=== PATIENT | male | born 1990 | race Caucasian/White ===

== ENCOUNTER 2020-05-03 23:36 | Emergency (ER) | payer OTHER | END 2020-05-04 07:08 | disposition home or self-care (01) | LOC: ED 23:36 | DX: T42.6X1A Poisoning by other antiepileptic and sedative-hypnotic drugs, accidental (unintentional), initial encounter (principal); Z87.891 Personal history of nicotine dependence ==

== ENCOUNTER 2020-06-16 13:07 | Observation (INO) | payer OTHER ==
[~2020-06-16] VITALS: Ht 182.9 cm; Wt 90.0 kg
[2020-06-16] MEDS ORDERED: NORVASC10 MG PO (13:34)
[2020-06-16] MEDS ORDERED: LISINOPRIL10 MG PO (13:34)
[2020-06-16] MEDS ORDERED: MELOXICAM15 MG PO (13:35)
--- NOTE | 2020-06-16 20:00 | NUR ---
PT TRANSPORTED FROM ED TO CCU ON TELEMETRY WITH THIS RN AND TWO [facility] KAREN. PT ALERT AND ORIENTED ON TRANSPORT. ABLE TO MOVE FROM STRETCHER TO BED WITH ONE PERSON ASSIST.
--- NOTE | 2020-06-16 20:15 | NUR ---
INIITIAL ASSESSMENT COMPLETED. PT ALERT AND ORIENTED. ANSWERS ALL QUESTIONS APPROPRIATELY. DENIES PAIN. STILL STATES HE HAS SOME LEFT SIDE WEAKNESS IN HIS ARM AND LEG. DIFFICULT TO ASSESS MOBILITY DUE TO SHACKLES. SENSATION INTAKE. PUPILS WNL. DISCUSSED PLAN OF CARE, ALL QUESTIONS ANSWERED. DENIES FURTHER NEEDS AT THIS TIME.
--- NOTE | 2020-06-16 20:53 | NUR ---
IV KEPPRA INFUSING AT THIS TIME. PT DENIES FURTHER NEEDS AT THIS TIME.
--- NOTE | 2020-06-16 22:30 | NUR ---
PT LYING IN PRONE POSITION, RESTING WITH EYES CLOSED, RESP EVEN AND UNLABORED SPO2 95%.
--- NOTE | 2020-06-16 22:45 | NUR ---
PT STOOD AT BEDSIDE TO VOID. HEART RATE INTO THE 140S. PT REPORTED FEELING DIZZY AND "JUST NOT GOOD". ASSISTED PT WITH LAYING BACK IN BED. INTRUCTED PT TO BEAR DOWN. HEART RATE RETURNED BACK UNDER 90 BPM. BLOOD PRESSURE WNL. NO INCREASED WEAKNESS ON LEFT SIDE. SAURATIONS REMAIN IN THE MID TO HIGH 90S ON ROOM AIR.
--- NOTE | 2020-06-16 23:07 | NUR ---
DR REICH CALLED AN UPDATED ON CHANGE IN PATIENTS CONDITION. ORDERS RECIEVED AT THIS TIME (SEE EMAR).
--- NOTE | 2020-06-17 00:49 | NUR ---
IN ROOM FOR ASSESSMENT. PT STOOD TO VOID. HEART RATE INCREASED TO 120-130. HAD PATIENT LAY BACK DOWN. HEART RATE BACK DOWN UNDER 100 BPM WITH REST. PT LESS SYMPTOMATIC THIS TIME THAN DURING THE PREVIOUS EVENT. BLOOD PRESSURE WITHIN NORMAL LIMITS. LUNGS SOUND CLEAR THROUGHOUT. PUPIL EQUAL AND REACTIVE TO LIGHT. SPO2 99 PERCENT ON ROOM AIR. RADIAL AND PEDAL PULSES EQUAL AND STRONG. DENIES DIZZINESS AT THIS TIME. CALL LIGHT WITHIN REACH. GAURDS REMAIN OUTSIDE OF DOOR. WILL CONTINUE TO CLOSELY MONITOR.
--- NOTE | 2020-06-17 02:12 | NUR ---
pt asleep. breathing even and unlabored RR=13. HR = 67 bpm. gaurds remain outside of room. no needs at this time
--- NOTE | 2020-06-17 05:17 | NUR ---
IN ROOM FOR ASSESSMENT. PT STATES LEFT SIDED WEAKNESS SEEMS TO HAVE RESOLVED. PT SAT AT BEDSIDE TO VOID. HEART RATE REMAINS WNL. PT UNABLE TO VOID. BACK IN BED. CALL LIGHT WITHIN REACH. DENIES FURTHER NEEDS AT THIS TIME.
--- NOTE | 2020-06-17 06:51 | NUR ---
patient stood at bedside to void. heart rate back up into the 140s with movement. denies dizziness. back in bed. heart rate back into the 60s after pt is back in bed. denies further needs at this time.
--- NOTE | 2020-06-17 07:40 | NUR ---
REPORT RECEIVED FROM NIGHTSHIFT RN, WILL CONTINUE PLAN OF CARE.
--- NOTE | 2020-06-17 08:24 | NUR ---
Update from Rn. Pt has history of seizures and could not bear weight on R side yesterday. He is also having activity on telemetry. Correctional officers are at his door. We follow up with Dr. Carlos for dc plan.
--- NOTE | 2020-06-17 08:39 | NUR ---
PT. LAYING IN BED WATCHING TV. PT REPORTS A SLIGHT BACK ACHE. PRN PAIN MEDICATION GIVEN FOR PAIN (SEE MAR). ASSESSMENT COMPLETE, PT STILL HAS L SIDED WEAKNESS WHEN COMPARED TO R SIDE. ORDERED MEDICATIONS ADMINISTERED, PT NOW LAYING IN BED WATCHING TV. CALL LIGHT WITHIN REACH, BED IN LOWEST POSITION. PT REPORTS NO FURTHER NEEDS AT THIS TIME. WILL CONTINUE PLAN OF CARE.
--- NOTE | 2020-06-17 10:30 | NUR ---
OT IN TO ASSESS PT. DR REICH ALSO IN TO ASSESS PT AND UPDATE ON PLAN OF CARE. DR. REICH STATES HE WILL ORDER AN MRI AND ECHO FOR THE PT. MRI TO HAPPEN TODAY AT 1PM. WHILE BEING ASSESSED BY OT PT STOOD UP TO URINATE. HR INCREASED TO THE 140'S PT STATED HE WAS DIZZY AND LIGHTHEADED AT THAT TIME. HR DECREASED ONCE PT WAS SITTING BACK DOWN AND SYMPTOMS SUBSIDED. PT STATES HE STILL FEELS WEAKER ON THE LEFT SIDE. PT REPORTS NO NEEDS AT THIS TIME, WILL CONTINUE PLAN OF CARE.
--- NOTE | 2020-06-17 11:45 | NUR ---
PT LAYING IN BED AWAKE AND ALERT. PT REPORTS THAT BACK PAIN IS NOW TOLERABLE AFTER RECEIVING PRN TYLENOL. IV FLUIDS INFUSING ORDERED NOW. MRI CHECKLIST COMPLETE. PT STATES HE FEELS STRONGER ON HIS LEFT SIDE THAN YESTERDAY, WHEN ASSESSED PT STILL PRESENTS WITH L SIDED WEAKNESS. PT REPORTS NO FURTHER NEEDS AT THIS TIME. CALL LIGHT IN REACH, BED IN LOWEST POSITION, WILL CONTINUE PLAN OF CARE.
--- NOTE | 2020-06-17 12:35 | NUR ---
RT IN TO DO EKG ON PT. PT IV FLUIDS COMPLETE, PT SALINE LOCKED. PT NOW EATING LUNCH IN BED. PT REPORTS NO FURTHER NEEDS AT THIS TIME AND DENIES ANY PAIN. CALL LIGHT IN REACH, BED IN LOWEST POSITION, WILL CONTINUE PLAN OF CARE.
--- NOTE | 2020-06-17 12:53 | NUR ---
PT UP TO USE URINAL. WHILE USING URINAL PT HR INCREASED TO 120'S, SPO2 STAYED AT 100% ON ROOM AIR. PT STATED HE WAS FEELING DIZZY/LIGHTHEADED AND VERY WARM TOWARDS THE END. PT'S SYMPTOMS SUBSIDED ONCE HE SAT DOWN ON BED. PT NOW LAYING BACK IN BED WATCHING TV. PT REPORTS NO FURTHER NEEDS AT THIS TIME, CALL LIGHT IN REACH, BED IN LOWEST POSITION. WILL CONTINUE PLAN OF CARE.
--- NOTE | 2020-06-17 13:11 | EKG ---
[facility] [address] [place] [address] Signed Sinus tachycardia Otherwise normal ECG When compared with ECG of 03-MAY-2020 23:50, Vent. rate has increased BY 44 BPM Nonspecific T wave abnormality no longer evident in Anterior leads Confirmed by LIZ REICH DO ([id number]) on 06/17/2020 1:11:35 PM Electronically Signed By: LIZ REICH DO 06/17/20 1311 PATIENT NAME: LORRI PEET VIDA Electrocardiogram DATE OF : 89 PHYSICIAN: LIZ REICH DO REPORT #: [id number] REPORT IS CONFIDENTIAL AND NOT TO BE RELEASED WITHOUT AUTHORIZATION
--- NOTE | 2020-06-17 13:41 | NUR ---
UNABLE TO VISIT IN PERSON WITH PT DUE TO PRECAUTIONS. WILL FOLLOW NEEDED OR ABLE
--- NOTE | 2020-06-17 14:06 | NUR ---
Call from Linda at [facility] and update given. Today's progress note faxed as requested. Informed I spoke with Dr. Carlos and possible dc tomorrow.
--- NOTE | 2020-06-17 14:34 | NUR ---
PT. RETURNED FROM IMAGING VIA WHEELCHAIR. MONITORS REATTACHED. ORDERED MEDICATION GIVEN AND ORTHOSTATIC BP TAKEN. PT STATED HE FELT LIGHTHEADED WHILE STANDING FOR THE ORTHOSTATIC BP'S BUT WAS ABLE TO STAY UP THE WHOLE TIME. HR WENT UP TO THE 120'S BUT SETTLED IN THE HIGH 90'S LOW 100'S AFTER THE 3 MIN. PT NOW BACK IN BED WATCHING TV AFTER VOIDING INTO URINAL. PT REPORTS NO FURTHER NEEDS AT THIS TIME. WILL CONTINUE PLAN OF CARE. CALL LIGHT IN REACH, BED IN LOWEST POSITION.
--- NOTE | 2020-06-17 15:09 | NUR ---
assisted pt. with bed bath, gown change bed linens. no other needs at this time.
--- NOTE | 2020-06-17 15:41 | NUR ---
PT SITTING IN BED EATING A SNACK. PT REPORTS NO LOWER BACK PAIN AT THIS TIME. PT REPORTS NO FEELINGS OF LIGHTHEADEDNESS OR DIZZYNESS AT THIS TIME. PT STILL EATING AND WATCHING TV AND REPORTS NO FURTHER NEEDS WHEN ASKED. CALL LIGHT WITHIN REACH, BED IN LOWEST POSTION, WILL CONTINUE PLAN OF CARE.
--- NOTE | 2020-06-17 17:54 | NUR ---
PATIENT WORKS WITH PHYS THERAPY AND THEN AMBULATES INTO BATHROOM TO HAVE A BM AND VOID. PT STATES TO GUARDS THAT HE FELT VERY DIZZY AND NAUESOUS AFTER THIS ACTIVITY, BUT NOW RESTING IN BED HIS SYMPTOMS HAVE IMPROVED. DISCUSSED WITH PATIENT PLAN TO SEE PHYSICAN TOMORROW AND PLANS MOVING FORWARD. PT'S HR UP TO 110s WITH ACTIVITY THAT TIME, OPPOSED TO UP 140s IT DID EARLIER. WILL CONTINUE TO MONITOR. PT GOING TO EAT HIS DINNER.
--- NOTE | 2020-06-17 19:30 | NUR ---
REPORT RECIEVED FROM CCU RN. CARE OF PATIENT ASSUMED AT THIS TIME. PT ASLEEP IN ROOM. KAREN AT BEDSIDE.
--- NOTE | 2020-06-17 20:43 | NUR ---
IN ROOM FOR MEDICATION ADMINISTRATION AND TO COMPLETE ASSESSMENT. PT HEART RATE IN THE 70-80S AT REST. ALERT AND ORIENTED X4, DENIES PAIN OR DISCOMFORT. PLAN OF CARE ESTABLISHED FOR EVENING. PT DENIES ANY NEEDS AT THIS TIME. CALL LIGHT WITHIN REACH. GAURDS REMAIN OUTSIDE OF ROOM.
--- NOTE | 2020-06-17 20:58 | NUR ---
PT AMBUALTED TO BATHROOM TO VOID. HEART RATE AT 100 BPM WITH AMBULATION. BACK DOWN INTO THE 70S WITH REST. DENIES FEELING NAUSEATED OR DIZZY WITH AMBULATION. LEFT SIDED LIMP STILL NOTICABLE WITH AMBULATION. PT BACK IN BED. NO FURTHER NEEDS.
--- NOTE | 2020-06-17 22:09 | EKG ---
[facility] [address] [place] [address] Signed Normal sinus rhythm Normal ECG When compared with ECG of 16-JUN-2020 13:13, (Unconfirmed) Vent. rate has decreased BY 41 BPM Confirmed by FRANKLIN TRAVIS MD ([id number]) on 06/17/2020 10:09:46 PM Electronically Signed By: FRANKLIN TRAVIS MD 06/17/20 2209 PATIENT NAME: LORRI PETE VIDA Electrocardiogram DATE OF : 89 PHYSICIAN: FRANKLIN TRAVIS MD REPORT #: [id number] REPORT IS CONFIDENTIAL AND NOT TO BE RELEASED WITHOUT AUTHORIZATION
--- NOTE | 2020-06-18 01:00 | NUR ---
PT IS SLEEPING SOUNDLY. HEART RATE DIPS INTO THE 40S OCCASIONALLY. CONSISTENTLY 50-60 AT REST. RR EVEN AND UNLABORED. SPO2 97 PERCENT ON ROOM AIR. GAURDS REMAIN OUTSIDE OF ROOM. NO ASSESSED NEEDS AT THIS TIME
--- NOTE | 2020-06-18 01:57 | NUR ---
2 AM DOSE OF CARDIZEM HELD DUE TO PATIENT'S BRADYCARDIA. WILL CONTINUE TO MONITOR.
--- NOTE | 2020-06-18 02:00 | NUR ---
pt resting soundly. breathing even and unlabored. heart rate in the 50s while resting. call light within reach. gaurds outside of door. no further needs at this time.
--- NOTE | 2020-06-18 03:00 | NUR ---
PT ASLEEP. REMAINS ON TELEMETRY. HEART RATE IN THE 50-60 WITH REST. NO ASSESSED NEEDS AT THIS TIME.
--- NOTE | 2020-06-18 05:15 | NUR ---
IN ROOM TO ASSESS PATIENT AND LAB DRAW. PT STATES HE IS FEELING WELL. AMBULATED TO THE BATHROOM. MINIMAL LIMPING NOTED. PT ABLE TO AMBULATE INDEPENDENTLY. PT HEART RATE IN THE 60-70S DURING AMBULATION. BACK IN BED. DENIES ANY NEEDS AT THSI TIME. CALL LIGHT WITHIN REACH. GUARDS REMAIN OUTSIDE OF ROOM.
--- NOTE | 2020-06-18 07:30 | NUR ---
REPORT RECIEVED. AMBULATED TO BR W/O ASSIST. BACK TO BED W/O INCIDENT.
--- NOTE | 2020-06-18 08:30 | NUR ---
Per [address] Naran[address]. Pt may dc today. Will call Linda at [facility] and update.
--- NOTE | 2020-06-18 08:30 | NUR ---
ASSESSMENT DONE, REMAINS WEAK ON LEFT SIDE. DENEIS PAIN. ROUTINE MEDICATIONS AND BREAKFAST GIVEN.
[2020-06-18] MEDS ORDERED: HYDROXYZINE HCL50 MG PO (11:42)
--- NOTE | 2020-06-18 11:43 | NUR ---
MED REC COMPLETE
--- NOTE | 2020-06-18 12:00 | NUR ---
Notified by Dr. Naranjo, pt will dc today. [facility] notified.
--- NOTE | 2020-06-18 12:35 | NUR ---
DR. TRAVIS HERE TO SEE PATIENT. WILL BE DISCHARGED THIS AFTERNOON.
[2020-06-18] MEDS ORDERED: DILTIAZEM 24HR120 MG PO (13:20)
[2020-06-18] MEDS ORDERED: KEPPRA500 MG PO (13:21)
--- NOTE | 2020-06-18 13:30 | NUR ---
Notified by CCU rn, packet from [facility] is not in the chart. Called and spoke with Phyllis Hanna NP at [facility]. They will fax new sheet and request dc summary. Dc summary faxed, she asks for report, informed I will have RN call as she has been working with José Miguel. Notified by RN packet was found, special weapons and tactics officer had. Called Dr. Naranjo to complete and she request I add a verbal order for staff to see dc summary and new prescriptions. Completed and placed in [place]illa envelope for [facility].
--- NOTE | 2020-06-18 13:45 | NUR ---
DISCHARGE INSTRUSTIONS GIVEN WITH PATIENT UNDERSTANDING. TELEMETRY AND IV SITE DC'D.
--- NOTE | 2020-06-18 14:20 | NUR ---
DISCHARGED VIA W/C ACCOMP BY OFFICERS AND NURSING STAFF.
--- NOTE | 2020-06-18 14:22 | NUR ---
UNABLE TO VISIT WITH PT DUE TO PRECAUTIONS. 2 [facility] GUARDS POSTED IN HALLWAY. WILL FOLLOW NEEDED
--- NOTE | 2020-06-18 14:34 | NUR ---
REPORT CALLED TO [facility] RN AT THIS TIME. ALL QUESTIONS ANSWERED BEST POSSIBLE AND INSTRUCTIONS TO CALL BACK IF ANY FURTHER QUESTIONS ARISE.
== END 2020-06-18 14:51 | disposition home or self-care (01) ==
LOC: ED 13:07 → CCU 13:08
PROVIDERS: ADMIT Student in an Organized Health Care Education/Training Program; ATTEND Student in an Organized Health Care Education/Training Program
DX: G83.84 Todd's paralysis (postepileptic) (principal); G40.909 Epilepsy, unspecified, not intractable, without status epilepticus; R29.898 Other symptoms and signs involving the musculoskeletal system; U07.1 COVID-19; R00.0 Tachycardia, unspecified; D68.59 Other primary thrombophilia; I10 Essential (primary) hypertension; Z88.8 Allergy status to other drugs, medicaments and biological substances; Z79.1 Long term (current) use of non-steroidal anti-inflammatories (NSAID); Z79.899 Other long term (current) drug therapy
CPT/HCPCS: 70450; 70496; 70498; 70551; 71045; 80048; 80053; 80061; 83036; 83735; 84484; 85025; 93005; 93010; 96365; 96372; 97162; 97165; 99285-25; C9803; G0378; J1650; J1953; J3475; J7121; Q9967; U0003

== ENCOUNTER 2024-08-18 19:42 | Emergency (ER) | payer OTHER ==
[~2024-08-18] VITALS: Ht 182.9 cm; Wt 89.4 kg
[~2024-08-18 19:42] MED LIST: DILTIAZEM 24HR120 MG PO; HYDROXYZINE HCL50 MG PO; KEPPRA500 MG PO; LISINOPRIL10 MG PO; MELOXICAM15 MG PO; NORVASC10 MG PO
[2024-08-18] MEDS ORDERED: ZOLOFT25 MG PO (19:52)
[2024-08-18] MEDS ORDERED: VITAMIN D210 MCG PO (19:54)
[2024-08-18] MEDS ORDERED: MECLIZINE HCL25 M1 PO (19:55)
[2024-08-18] MEDS ORDERED: ACETAZOLAMIDE500 M1 PO (19:55)
[2024-08-18] MEDS ORDERED: FUROSEMIDE20 MG PO (19:56)
[2024-08-18] MEDS ORDERED: OPCON-A EYE DRO15 ML OPTH (19:56)
[2024-08-18] MEDS ORDERED: RELAFEN DS1000 MG PO (19:56)
[2024-08-18 20:02] LABS: BASOPHILS 0.4 % (0-2); EOSINOPHILS 7.3 % (0-6); HEMATOCRIT 39.6 % (35.0-50.0); HEMOGLOBIN 13.5 g/dL (12.0-18.0); LYMPHOCYTES 33.7 % (24-44); MCH 29.9 (27-36); MCHC 34.1 g/dl (30-36); MCV 87.8 fl (81-99); NEUTROPHILS 49.6 % (39-80); PLATELET COUNT 178 K/uL (140-440); RBC 4.51 M/ul (4.3-5.7); RDW 14.5 (10.5-15.0)
[2024-08-18 20:11] LABS: ALBUMIN/GLOBULIN RATIO 1.25 (1.1-2.4); ALCOHOL, MEDICAL <3 ng/dL (<3); ALKALINE PHOSPHATASE 80 U/L (46-116); ALT (SGPT) 25 U/L (14-59); ANION GAP 12.7 (7-21); AST (SGOT) 20 U/L (15-37); BILIRUBIN, TOTAL 0.7 ng/dL (0.2-1.0); BUN/CREATININE RATIO 12.78 (6.0-28.6); CALCIUM 8.6 mg/dL (8.5-10.1); CARBON DIOXIDE 24 mmol/L (21-32); CHLORIDE 106 mmol/L (98-107); CREATININE, SERUM 1.33 mg/dL (0.70-1.30); GLOMERULAR FILTRATION RATE,EST 73 mL/min (>60); MAGNESIUM 1.9 mg/dL (1.8-2.4); POTASSIUM 3.7 mmol/L (3.5-5.1); PROTEIN, TOTAL 7.2 g/dL (6.4-8.2); UREA NITROGEN 17 mg/dL (7-18)
[2024-08-18 20:47] LABS: BILIRUBIN, URINE NEGATIVE (negative); BLOOD/HGB, URINE SMALL (Negative); KETONE, URINE NEGATIVE (Negative); LEUK ESTERASE, URINE NEGATIVE (negative); NITRITE, URINE NEGATIVE (negative)
[2024-08-18 20:58] LABS: BACTERIA, URINE NONE SEEN /hpf (negative); CASTS, URINE NONE SEEN \\lpf; COLLECTION TYPE, URINE CLEAN CATCH; CRYSTALS, URINE NONE SEEN (0-1+); EPITHELIAL CELLS, URINE SQUAMOUS 1+ /lpf (0-1+); RED BLOOD CELLS, URINE 0-1 /hpf (0-5); REFLEX CULTURE, URINE No (No); WHITE BLOOD CELLS, URINE 0-1 /HPF (0-5)
[2024-08-18 21:00] LABS: AMPHETAMINES, URINE NEGATIVE (NEGATIVE); BARBITURATES, URINE NEGATIVE (NEGATIVE); BENZODIAZEPINE, URINE NEGATIVE (NEGATIVE); BUPRENORPHINE, URINE POSITIVE (NEGATIVE); CANNABINOID, URINE NEGATIVE (NEGATIVE); COCAINE, URINE NEGATIVE (NEGATIVE); ECSTASY, URINE NEGATIVE (NEGATIVE); FENTANYL, URINE NEGATIVE (NEGATIVE); METHADONE, URINE NEGATIVE (NEGATIVE); OPIATES, URINE NEGATIVE (NEGATIVE); OXYCODONE, URINE NEGATIVE (NEGATIVE); PHENCYCLIDINE, URINE NEGATIVE (NEGATIVE)
[2024-08-18 21:08] VITALS: BP 145/84
== END 2024-08-18 21:10 | disposition other institution, planned readmission (95) ==
LOC: ED 19:42
PROVIDERS: Internal Medicine
DX: R56.9 Unspecified convulsions (principal); G93.2 Benign intracranial hypertension; M79.5 Residual foreign body in soft tissue; I10 Essential (primary) hypertension; K21.9 Gastro-esophageal reflux disease without esophagitis; Z86.16 Personal history of COVID-19; Z88.8 Allergy status to other drugs, medicaments and biological substances; Z79.899 Other long term (current) drug therapy
CPT/HCPCS: 36415; 70450; 72125; 80053; 80307; 81001; 83735; 85025; 99285-25; G0480